=== PATIENT | male | born 1965 | race Caucasian/White ===

== ENCOUNTER 2016-09-04 17:43 | Emergency (ER) | payer OTHER ==
[2016-09-04 18:03] VITALS: BP 135/88
--- OUTSIDE RECORDS SUMMARY | 2016-09-04 18:45 | XMS REPORT | Continuity of Care Document ---
:1965 Author Organization [facility] ([facility]) Address [address] [place] [address] Phone [phone] Care Team Providers Name Role Phone RipNicolas Primary Care Provider [phone] Source Comments This disclosure is being made pursuant to the Care Everywhere program, applicable federal and state laws, and may not contain all informaitonavailable regarding this patient.[facility] ([facility]) Active Allergies and Adverse Reactions No Known Allergies Current Medications Prescription Sig. Disp. Refills Start Date End Date Status atenolol 100 mg tablet Take 100 mg by mouth Active daily. lisinopril 40 mg tablet Take 40 mg by mouth Active daily. simvastatin 20 mg Take 20 mg by mouth Active tablet every evening. multivitamin tablet Take 1 Tab by mouth Active daily. erythromycin 0.5 % instill onto both 3.5 g 0 03/04/2013 Active ophthalmic ointment eyes 3 times daily. 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 Social History Tobacco Use Types Packs/Day Years Used Date Never Smoker Smokeless Tobacco: Never Used Alcohol Use Drinks/Week oz/Week Comments No Last Filed Vital Signs Vital Sign Reading Time Taken Blood Pressure 141/85 03/04/2013 12:20 PM [facility] Pulse 63 03/04/2013 12:20 PM [facility] Temperature 37.3 C (99.1 F) 03/04/2013 12:20 PM [facility] Respiratory Rate 20 03/04/2013 12:20 PM [facility] Height - - Weight - - Body Mass Index - - Oxygen Saturation 99% 03/04/2013 12:20 PM [facility] Plan of Care Health Maintenance Due Date Last Done Comments HCV Screening 1965 Hepatitis B Vaccine (1 of 3 - Primary Series) 1965 Tdap Vaccine 1974 Lipid Disorder Screening 1981 MMR Vaccine 1981 Td Vaccine 1981 Colonoscopy 02/10/2013 Prostate Cancer Screening 2013 Influenza Vaccine: Seasonal (#1) 11/13/2015 Results from Last 3 Months Not on file
--- NOTE | 2016-09-04 18:54 | ERNOTE ---
Lower Extremity HPI - Narrative Date of Service: 09/04/16 - General Lower Extremities Pain: knee: left Time Seen by Provider: 09/04/16 18:35 Source: patient, RN notes reviewed Exam Limitations: no limitations - Immun/Allergies/Home Medications Immunizations: IMMUNIZATION HX Immunizations Up to Date Yes History of Influenza Vaccine No Hx Pneumococcal Vaccination No Allergies/Adverse Reactions: Allergies Allergy/AdvReac Type Severity Reaction Status Date / Time No Known Drug Allergies Allergy Verified 09/04/16 18:10 Home Medications: HOME MEDICATIONS Atenolol [Tenormin (Atenolol)] 50 mg PO DAILY 08/10/12 [Last Taken Unknown] Lisinopril [Zestril] 40 mg PO DAILY 08/10/12 [Last Taken Unknown] Fenofibrate [Lofibra] 160 mg PO DAILY 06/06/14 [Last Taken Unknown] Cholecalciferol [Vitamin D] 5,000 unit PO DAILY 09/04/16 [Last Taken Unknown] Levothyroxine Sodium [Levo-T] 88 mcg PO DAILY 09/04/16 [Last Taken Unknown] - History of Present Illness Narrative: 51 y/o male ambulatory to the ED for left knee pain after a fall at home earlier this afternoon. He fell directed on the knee and reports pain in the patella. He states he has arthritis but otherwise has not had any previous injuries to the knee. He has not taken anything for pain, and denies the need for pain medication on initial exam. Date (Duration): 09/04/16 Occurred: this afternoon Location of Incident: home Method of Injury: Reports: fell Reason for Fall: Reports: tripped Modifying Factors - (Improves): Reports: cold therapy, rest Modifying Factors - (Worsens): Reports: movement Associated Symptoms: Denies: unable to bear weight, snapping, popping sensation Other Injuries: Reports: none Subsequent Symptoms: Denies: sensory loss, numbness, motor loss Prior Treament: Denies: similar symptoms before Review of Systems - Review of Systems Constitutional: Present: no symptoms reported EYE: Present: no symptoms reported ENT: Present: no symptoms reported Respiratory: Present: no symptoms reported Cardiology: Present: no symptoms reported Gastrointestinal/Abdominal: Present: no symptoms reported Musculoskeletal: Present: joint pain, joint swelling Skin: Absent: lesions, lumps, change in color Neurological: Absent: weakness, numbness, tingling Endocrine: Present: no symptoms reported Hematologic/Lymphatic: Absent: easy bruising, easy bleeding Psych: Present: no symptoms reported - Patient's Past Medical History Patient History - Medical: Hypothyroidism Patient History - Cardiac/Respiratory: Hypertension, Hyperlipidemia Patient History - Cancer: No Hx of Cancer Patient History - Surgical Procedures: Colonoscopy, T & A, Other, Orthopedic Patient History - Other: None - Social History Living Situations: home Abuse History: No History of abuse Psych History: No pertinent hx Smoking Status: Never smoker Alcohol Use: rarely Drug Use: none - Immunizations Immunizations Up to Date: Yes Hx Pneumococcal Vaccination: No History of Influenza Vaccine: No Physical Exam - Physical Exam General Appearance: Present: wd/wn, alert, no apparent distress, obese Respiratory: Present: no respiratory distress, no accessory muscle use Cardiovascular/Chest: Present: normal peripheral pulses Extremity Exam: Present: normal range of motion, joint swelling - trace edema to left anterior knee, mild tenderness with palpation. Absent: bony tenderness , extremity edema Neurological Exam: Present: alert, oriented, normal mood/affect, no motor/ sensory deficits Skin Exam: Present: normal color, warm/dry, other - minor abrasion to left patella ED Progress - Vital Signs Patient's Vital Signs:: I have reviewed the patient's vital signs. Vital Signs: Vital Signs 09/04/16 17:58 Temperature 36.7 C Pulse Rate 72 Respiratory 16 Rate Blood Pressure 135/88 O2 Sat by Pulse 96 Oximetry - X-Ray X-Ray #1 X-Ray: knee Interpretation: Reviewed by me X-ray Comments: Technique: 3 views of the left knee obtained. Findings: There is mild tricompartmental narrowing. There is moderate osteophyte formation. No fractures identified. Alignment appears within normal limits. There is mild capsular distention. IMPRESSION: ARTHRITIC CHANGES. NO ACUTE FRACTURE OR DISLOCATION IDENTIFIED. Electronically signed by Kevin Tang M.D.. - Progress/Reassessment Chief Complaint: Lower Extremity Pain/ Injury Progress:: Unchanged Departure Clinical Impression: Contusion of knee, left Qualifiers: Encounter type: initial encounter Qualified Code(s): S80.02XA - Contusion of left knee, initial encounter - Departure Disposition: Home Follow Up Needed Condition: Good Instructions: Knee Pain, [id number] Additional Instructions: Ice and elevate Modify activity as needed Ibuprofen or Aleve for pain as directed on label (not both) OK to also take Tylenol Follow up with your doctor if symptoms are not improving in the next week to 10 days Referrals: Nicolas Erwin MD [Primary Care Provider] -
== END 2016-09-04 19:00 | disposition home or self-care (01) ==
LOC: ER 17:43
DX: S80.02XA Contusion of left knee, initial encounter (principal); W01.0XXA Fall on same level from slipping, tripping and stumbling without subsequent striking against object, initial encounter; Y93.9 Activity, unspecified; Y92.009 Unspecified place in unspecified non-institutional (private) residence as the place of occurrence of the external cause; I10 Essential (primary) hypertension